=== PATIENT | female | born 1995 | race Caucasian/White ===

== ENCOUNTER 2017-04-13 16:35 | Emergency (ER) | payer BC ==
[2017-04-13 17:44] VITALS: BP 142/91
--- NOTE | 2017-04-13 19:08 | UC ---
Respiratory Complaint HPI - HPI Summary HPI Summary: Pt presents with productive cough for the last 3 days. Experiencing some mild generalized chest pain when coughing. Has not taken anything OTC. Denies fever, chills, SOB, chest pain, abdominal pain, n/v/d/c. - History of Current Complaint Chief Complaint: UCRespiratory Stated Complaint: COUGH Time Seen by Provider: 04/13/17 19:08 Hx Obtained From: Patient Onset/Duration: Gradual Onset Severity Initially: Moderate Severity Currently: Moderate Pain Intensity: 6 Pain Scale Used: 0-10 Numeric Character: Cough: Productive - Allergies/Home Medications Allergies/Adverse Reactions: Allergies Allergy/AdvReac Type Severity Reaction Status Date / Time iodine Allergy Anaphylatic Verified 04/13/17 17:45 Shock Home Medications: Home Medications Methylphenidate HCl [Concerta] 72 mg PO DAILY 04/13/17 [History Confirmed ] PMH/Surg Hx/FS Hx/Imm Hx Previously Healthy: Yes - Surgical History Surgical History: None - Family History Known Family History: Positive: Unknown - Social History Occupation: Student Alcohol Use: Occasionally Substance Use Type: None Smoking Status (MU): Never Smoked Tobacco Review of Systems Constitutional: Negative Skin: Negative Eyes: Negative ENT: Negative Respiratory: Cough Cardiovascular: Negative Gastrointestinal: Negative Neurological: Negative Psychological: Negative All Other Systems Reviewed And Are Negative: Yes Physical Exam Triage Information Reviewed: Yes Appearance: Well-Appearing, No Pain Distress, Well-Nourished Vital Signs: Initial Vital Signs Temp 98.8 F 04/13/17 17:40 Pulse 98 04/13/17 17:40 Resp 20 04/13/17 17:40 BP 142/91 04/13/17 17:40 Pulse Ox 100 04/13/17 17:40 Vital Signs Reviewed: Yes Eyes: Positive: Conjunctiva Clear. Negative: Conjunctiva Inflamed, Discharge ENT: Positive: Hearing grossly normal, Pharynx normal, TMs normal, Uvula midline. Negative: Pharyngeal erythema, Nasal congestion, Nasal drainage, TM bulging, TM dull, TM red, Tonsillar swelling, Tonsillar exudate, Hoarse voice, Sinus tenderness Neck: Positive: Supple, Nontender, No Lymphadenopathy Respiratory: Positive: Chest non-tender, Lungs clear, Normal breath sounds, No respiratory distress, No accessory muscle use Cardiovascular: Positive: RRR, No Murmur, Pulses Normal Neurological: Positive: Alert Psychological: Positive: Age Appropriate Behavior Skin: Negative: rashes UC Diagnostic Evaluation - Laboratory O2 Sat by Pulse Oximetry: 100 Respiratory Course/Dx - Course Course Of Treatment: CXR: IMPRESSION: No radiographic evidence of acute cardiopulmonary disease. I offered the pt tessalon or cough syrup at bedtime and she declined both. She would like to continue with conservative treatment. - Differential Dx/Diagnosis Provider Diagnoses: Cough Discharge - Discharge Plan Condition: Stable Disposition: HOME Patient Education Materials: Acute Cough (ED) Referrals: No Primary Care Phys,NOPCP [Primary Care Provider] - Additional Instructions: If you develop a fever, shortness of breath, chest pain, new or worsening symptoms - please call your PCP or go to the ED. Your blood pressure was high at todays visit. Please see your primary provider within 4 weeks for recheck and re-evaluation.
--- NOTE | 2017-04-13 20:01 | RAD ---
INDICATION: Cough x3 days COMPARISON: None TECHNIQUE: PA and lateral views of the chest were obtained. FINDINGS: The heart and mediastinum are normal in size and contour. The lungs are grossly clear. There is no evidence of large pleural effusion. Visualized bones are normal for the patient's age. There is no radiographic evidence of free air beneath the diaphragm IMPRESSION: No radiographic evidence of acute cardiopulmonary disease.
== END 2017-04-13 20:05 | disposition home or self-care (01) ==
LOC: UCEAST 16:35
DX: R05 Cough (principal); R07.89 Other chest pain
CPT/HCPCS: 71046; 99201; G0463

== ENCOUNTER 2017-06-16 10:58 | Emergency (ER) | payer SELFPAY ==
[2017-06-16 12:03] VITALS: BP 135/86
--- NOTE | 2017-06-16 12:18 | UC ---
Laceration HPI - HPI Summary HPI Summary: 21 y/o female presents to the urgent care c/o left thumb laceration and injury w / a metal stool today around 1030AM. Pt reports she was carrying the metal tool then she slipped and hit her left thumb. She has a superficial laceration w/ swelling and some bruising. She can't move her left thumb and feels mild numbness and tingling sensation. Pt can't recall last Tetanus shot. LMP: 2017. Pt declines test. Pain is 7/10 w/ movement. Pt denies fever, SOB , chest pain, abdominal pain, N/V/D. - History Of Current Complaint Chief Complaint: UCUpperExtremity Stated Complaint: THUMB LAC Time Seen by Provider: 06/16/17 12:16 Hx Obtained From: Patient Hx Last Menstrual Period: 06/09/17 Laceration Location: Hand - left hand thumb Mechanism Of Injury: Sharp Trauma Onset/Duration: Sudden Onset, Lasting Hours - 2 hrs Severity: Moderate Pain Intensity: 7 Pain Scale Used: 0-10 Numeric Aggravating Factors: Movement Related History: Dominant Hand Right - Allergies/Home Medications Allergies/Adverse Reactions: Allergies Allergy/AdvReac Type Severity Reaction Status Date / Time iodine Allergy Anaphylatic Verified 06/16/17 11:56 Shock PMH/Surg Hx/FS Hx/Imm Hx Previously Healthy: Yes - Pt denies PMHX - Surgical History Surgical History: None - Family History Known Family History: Positive: Unknown - Pt denies any FMHX - Social History Occupation: Employed Full-time Lives: With Family Alcohol Use: Rare Substance Use Type: None Smoking Status (MU): Never Smoked Tobacco Review of Systems Constitutional: Negative Skin: Bruising - left thumb bruising and swelling Eyes: Negative ENT: Negative Respiratory: Negative Cardiovascular: Negative Gastrointestinal: Negative Genitourinary: Negative Motor: Negative Musculoskeletal: Decreased ROM - left thumb s/p injury, Other: - lefth thumb pain s/p injury Neurological: Negative Psychological: Negative Is Patient Immunocompromised?: No All Other Systems Reviewed And Are Negative: Yes Physical Exam - Summary Physical Exam Summary: Vital Signs Reviewed: Yes General: well developed, well nourished female sitting in the examining table w/ o any apparent distress Eye Exam: Normal Eyes: Positive: Conjunctiva Clear - PERRLA, EOMI, fundi grossly normal ENT: Positive: Normal ENT inspection, Hearing grossly normal, Pharynx normal, TMs normal Neck: Positive: Supple, Nontender, No Lymphadenopathy Respiratory: Positive: Chest non-tender, Lungs clear, Normal breath sounds, No respiratory distress Cardiovascular: Positive: RRR, No Murmur, Pulses Normal, Brisk Capillary Refill Abdomen Description: Positive: Nontender, No Organomegaly, Soft. Negative: CVA Tenderness (R), CVA Tenderness (L) Bowel Sounds: Positive: Present Musculoskeletal: Wrist: the L hand is without obvious asymmetry or deformity when compared to the R wrist. Positive swelling and bruising at the medial side of the first left phalanx at the level of the first DIPJ w/ also a discrete superficial laceration. Point tenderness at the same area and decrease ROM. No warmth. No bony crepitus. No PT over the thenar eminence and ventral side of wrist. No scaphoid fullness or tenderness to direct palpation or axial load. Decreased ROM due to pain. Motor/sensory function of ulnar, radial, median nerves intact. Ulnar and radial pulses intact. Neurological: Positive: Alert, Muscle Tone Normal Psychological Exam: Normal Skin: Positive: Medial side of the LF DIPJ of the first phalanx discrete linear superficial laceration about 1.8 cm in size, bleeding, no foreign body observed. mild tenderness to palpation, moderate bruising and swelling over the DIPJ, sensation intact, capillary refill brisk, and pulses WNL. Triage Information Reviewed: Yes Vital Signs: Initial Vital Signs Temp 98.5 F 06/16/17 11:57 Pulse 81 06/16/17 11:57 Resp 18 06/16/17 11:57 BP 135/86 06/16/17 11:57 Pulse Ox 100 06/16/17 11:57 Laceration Repair - Laceration Repair 1 Description: Linear : No Repair Necessary Laceration Course/Dx - Course/Dx Course Of Treatment: 21 y/o female presents to the urgent care c/o left thumb laceration and injury w/ a metal stool today around 1030AM. Pt reports she was carrying the metal tool then she slipped and hit her left thumb. She has a superficial laceration w/ swelling and some bruising. She can't move her left thumb and feels mild numbness and tingling sensation. Pt can't recall last Tetanus shot. LMP: 06/09/2017. Pt declines test. Pain is 7/10 w/ movement. Pt denies fever, SOB, chest pain, abdominal pain, N/V/D. Hx obtained. Pt w/ a discrete superficial linear laceration on the medial aspect of the LF thumb about 1.8cm in size, and bruising and sweeling around LF first DIPJ on examination. LF thumb X-ray ordered, Impression: No acute ossseous injury observed as per radiologist. Probably a thumb sprain. No need for laceration repair. Wound irrigated by the nurse w/ sterile water. Bacitracin applied over wound and sterile dreesing applied. Thumb immobilized w/ a finger splint. Neurovascular intact after splint placement. Pt Advised RICE: Rest, Ice, elevation, Rx Ibuprofen PO for pain and Bacitracin oint for the wound. Pt strongly advised to f/u with Orthopedic Dr Bruce if not improvement of symptoms in 1 week. Pt understood and agreed w/ plan of care. - Differential Dx - Laceration/Wound Differental Diagnoses: Abrasion, Fracture, Laceration, Puncture Wound, Other - contusion, sprain, strain Provider Diagnoses: 1- Left thumb pain s/p injury. 2- Left thumb superficial laceration. Discharge - Sign-Out/Discharge Documenting (check all that apply): Discharge - Discharge Plan Condition: Stable Disposition: HOME Prescriptions: Bacitracin OINTMENT* 1 applic TOPICAL BID #1 tube Ibuprofen TAB* [Motrin TAB* 800 MG] 800 mg PO Q6H PRN #20 tab PRN Reason: Pain Patient Education Materials: Finger Laceration (ED), Finger Sprain (ED) Referrals: [facility] [Outside] - 1 Week Daniela Bruce MD [Medical Doctor] - 1 Week Additional Instructions: 1-Please take medications as directed to alleviate pain and swelling. 2-Please apply ice, keep your thumb immobilized with the splint. 3- Please f/u with Orthopedic or your PCP in 1 week is not improvement of symptoms for further evaluation and treatment. - Billing Disposition and Condition Condition: STABLE Disposition: HOME
[2017-06-16] MEDS ORDERED: Diphth/Teta/Acell Pertusis* 0.5 ML VIAL ** FOR 6 WKS TO 7 YRS OLD IM ONE (12:34)
--- NOTE | 2017-06-16 13:23 | RAD ---
HISTORY: Left thumb pain and laceration, status post injury COMPARISONS: None VIEWS: 3, Frontal, lateral, and oblique views of the first digit of the left hand FINDINGS: BONE DENSITY: Normal. BONES: There is no displaced fracture. JOINTS: There is no arthropathy. ALIGNMENT: There is no dislocation. SOFT TISSUES: Unremarkable. OTHER FINDINGS: None. IMPRESSION: NO ACUTE OSSEOUS INJURY. IF SYMPTOMS PERSIST, RECOMMEND REPEAT IMAGING.
[2017-06-16] MEDS ORDERED: Tetan/Diph/Pertus SYR(Tdap)* 0.5 ML SYR(BOOSTRIX) use SYR IM ONE ×2 (13:44→14:00)
== END 2017-06-16 14:07 | disposition home or self-care (01) ==
LOC: UCEAST 10:58
DX: S61.012A Laceration without foreign body of left thumb without damage to nail, initial encounter (principal); S60.012A Contusion of left thumb without damage to nail, initial encounter; W45.8XXA Other foreign body or object entering through skin, initial encounter; Y93.89 Activity, other specified; Y92.9 Unspecified place or not applicable; Z23 Encounter for immunization
CPT/HCPCS: 90715; 96372; 99213; G0463

== ENCOUNTER 2017-08-01 11:39 | Emergency (ER) | payer BC, OTHER ==
[2017-08-01 12:05] VITALS: BP 137/73
--- NOTE | 2017-08-01 12:41 | UC ---
Complaint Female HPI - HPI Summary HPI Summary: vaginal burning and itching for 4 days--no burning urgency or frequency with urination - History Of Current Complaint Chief Complaint: UCGU Stated Complaint: URINARY COMPLAINT Time Seen by Provider: 08/01/17 12:30 Hx Obtained From: Patient Hx Last Menstrual Period: last week, has nexplanon ?: No Onset/Duration: Sudden Onset, Lasting Days - 4, Still Present Timing: Constant Pain Intensity: 5 Pain Scale Used: 0-10 Numeric Character: Burning Aggravating Factor(s): Nothing Alleviating Factor(s): Nothing Associated Signs And Symptoms: Positive: Vaginal Discharge - small amount - Allergies/Home Medications Allergies/Adverse Reactions: Allergies Allergy/AdvReac Type Severity Reaction Status Date / Time iodine Allergy Anaphylatic Verified 08/01/17 12:00 Shock PMH/Surg Hx/FS Hx/Imm Hx Previously Healthy: No - ADD - Surgical History Surgical History: None - Family History Known Family History: Positive: Unknown - Pt denies any FMHX - Social History Alcohol Use: Occasionally Substance Use Type: None Smoking Status (MU): Never Smoked Tobacco - Immunization History Hx Tetanus, Diphtheria Vaccination: Yes Vaccination Up to Date: Yes Review of Systems Constitutional: Negative Skin: Negative Eyes: Negative ENT: Negative Respiratory: Negative Cardiovascular: Negative Gastrointestinal: Negative Genitourinary: Negative, Vaginal/Penile Itching Motor: Negative Neurovascular: Negative Musculoskeletal: Negative Neurological: Negative Psychological: Negative Is Patient Immunocompromised?: No All Other Systems Reviewed And Are Negative: Yes Physical Exam Triage Information Reviewed: Yes Appearance: Well-Appearing, No Pain Distress, Well-Nourished Vital Signs: Initial Vital Signs Temp 98.7 F 08/01/17 12:00 Pulse 86 08/01/17 12:00 Resp 18 08/01/17 12:00 BP 137/73 08/01/17 12:00 Pulse Ox 100 08/01/17 12:00 Vital Signs Reviewed: Yes Eye Exam: Normal Eyes: Positive: Conjunctiva Clear ENT Exam: Normal ENT: Positive: Normal ENT inspection, Hearing grossly normal. Negative: Trismus , Muffled voice, Hoarse voice Dental Exam: Normal Neck exam: Normal Neck: Positive: Supple, Nontender Respiratory Exam: Normal Respiratory: Positive: Chest non-tender, No respiratory distress, No accessory muscle use Cardiovascular Exam: Normal Cardiovascular: Positive: RRR, Pulses Normal, Brisk Capillary Refill Abdominal Exam: Normal Abdomen Description: Positive: Nontender, No Organomegaly, Soft. Negative: CVA Tenderness (R), CVA Tenderness (L), Distended, Guarding, Hepatomegaly, McBurney' s Point Tenderness, Peritoneal Signs Bowel Sounds: Positive: Present Pelvic Exam: Positive: External Exam Normal, Discharge, Other - small amount of thick white vaginal discharge. Negative: Tender w/ Cervical Motion, Tender Adnexa, Tender Uterus Musculoskeletal Exam: Normal Musculoskeletal: Positive: Strength Intact, ROM Intact, No Edema Neurological Exam: Normal Neurological: Positive: Alert, Muscle Tone Normal Psychological Exam: Normal Skin Exam: Normal Diagnostics - Laboratory Diagnostic Studies Completed/Ordered: UA +3 leukoesterace, +1 blood Complaint Female Dx - Course Course Of Treatment: affirm and apptima swabs obtained will treat with Diflucan and follow with patient should additional treatments be necessary - Differential Dx/Diagnosis Provider Diagnoses: Vulvovaginal candidiasis Discharge - Sign-Out/Discharge Documenting (check all that apply): Discharge/Admit/Transfer - Discharge Plan Condition: Stable Disposition: HOME Prescriptions: Fluconazole [Diflucan 150 MG (NF)] 150 mg PO ONCE #2 tab Patient Education Materials: Yeast Infection (ED) [facility] [Outside] - If Needed - Billing Disposition and Condition Condition: STABLE Disposition: HOME
--- NOTE | 2017-08-02 15:33 | UC ---
- Progress Note Progress Note: Final vaginal culture with NEGATIVE BV. Positive Karen GC, trich, and chlamydia all negative. Urine negative. She was treated for her karen at visit. No change Discharge - Sign-Out/Discharge Documenting (check all that apply): Post-Discharge Follow Up - Discharge Plan Condition: Stable Disposition: HOME Prescriptions: Fluconazole [Diflucan 150 MG (NF)] 150 mg PO ONCE #2 tab Patient Education Materials: Yeast Infection (ED) Referrals: [facility] [Outside] - If Needed - Billing Disposition and Condition Condition: STABLE Disposition: Home
== END 2017-08-01 12:55 | disposition home or self-care (01) ==
LOC: UCEAST 11:39
DX: B37.3 Candidiasis of vulva and vagina (principal); F98.8 Other specified behavioral and emotional disorders with onset usually occurring in childhood and adolescence; Z88.3 Allergy status to other anti-infective agents
CPT/HCPCS: 81003; 84702; 87086; 87480; 87491; 87510; 87591; 87661; 99201; G0463